=== PATIENT | female | born 1950 | race Caucasian/White ===

== ENCOUNTER 2018-12-06 14:50 | Emergency (ER) | payer MEDICARE ==
[~2018-12-06] VITALS: Ht 172.7 cm; Wt 54.0 kg
[2018-12-06 14:55] VITALS: BP 125/75
--- NOTE | 2018-12-06 14:57 | NUR ---
THIS IS A 68 YEAR OLD FEMALE WHO WAS BIB BY AMBULANCE. PT WAS DOWN BY [place] AND TRIPPED ON [place] AND C/O OF RIGHT ANKLE PAIN. PT HAS SEVERE DEFORMATY. POSITIVE [facility] PT VISITING FROM [employer]. PT RECEIVE 100MCG OF [place] IV IN ROUTE.
[2018-12-06] MEDS ORDERED: FENTANYL PF 100 MCG/2ML IV ONE ×2 (16:00→17:00)
[2018-12-06] MEDS ORDERED: PROPOFOL 10 MG/ML, 20ML IVPush ONE (16:00)
[2018-12-06] MEDS ORDERED: ONDANSETRON 2MG/ML, 2ML IVPush ONE (16:00)
[2018-12-06] MEDS ORDERED: PROPOFOL 10 MG/ML, 20ML ONE (16:01)
[2018-12-06] MEDS ORDERED: FENTANYL PF 100 MCG/2ML ONE (16:01)
[2018-12-06] MEDS ORDERED: ONDANSETRON 2MG/ML, 2ML ONE (16:11)
--- NOTE | 2018-12-06 18:58 | NUR ---
Patient given discharge instructions and they have confirmed that they understand the instructions. Patient ambulatory with steady gait with crutches.
== END 2018-12-06 18:59 | disposition home or self-care (01) ==
LOC: ED 17:43
DX: S82.61XA Displaced fracture of lateral malleolus of right fibula, initial encounter for closed fracture (principal); F17.200 Nicotine dependence, unspecified, uncomplicated; W01.0XXA Fall on same level from slipping, tripping and stumbling without subsequent striking against object, initial encounter; Y93.89 Activity, other specified; Y92.830 Public park as the place of occurrence of the external cause; Y99.8 Other external cause status
CPT/HCPCS: 27840; 73600; 96374; 96375; 96376; 99152; 99285; J2405; J3010